=== PATIENT | female | born 1970 | race Caucasian/White ===

== ENCOUNTER → 2024-12-09 | Outpatient (CLI) | payer MEDICARE, SELFPAY ==
--- NOTE | 2024-12-09 10:00 | XR_ITS ---
Examination: Breast ultrasound complete, bilateral Date and time of exam: December 09, 2024 1048 hours Comparison August 16, 2023 INDICATIONS: Diagnosis dense breast architecture Technique: Real-time grayscale ultrasonographic imaging bilateral breasts, including all 4 quadrants as well as nipple retroareolar and axillary regions. Findings: Sonographic images right breast No cystic or solid mass Sonographic images left breast 8:00 cyst 6 x 7 mm No solid nodules IMPRESSION: BI-RADS Category 2: Benign findings
--- NOTE | 2024-12-09 11:00 | XR_ITS ---
Examination: Screening digital mammography, bilateral Computer aided detection 3-D breast Tomosynthesis, bilateral Date and time of exam: December 09, 2024 1111 hours COMPARISON: Mammograms dating to April 13, 2016 Indication: Screening Technique: Nonmagnified MLO, CC views of the breasts to been obtained, reconstructed from 3-D Tomosynthesis images. R2 computer aided detection program utilized for evaluation of suspicious masses and/or abnormal calcifications. 3-D Tomosynthesis images obtained. Findings: The breasts are heterogeneously dense, which may obscure small masses Benign calcifications. No suspicious masses Impression: BI-RADS category II: Benign Findings. Recommend 1 year follow-up mammogram.
== END | disposition home or self-care (01) ==
PROVIDERS: PCP Family Medicine; Referring Provider Family Medicine; Visit Provider Family Medicine
DX: Z12.31 Encounter for screening mammogram for malignant neoplasm of breast (principal); R92.323 Mammographic fibroglandular density, bilateral breasts; R92.1 Mammographic calcification found on diagnostic imaging of breast
CPT/HCPCS: 76641; 77063; 77067

== ENCOUNTER → 2025-05-04 | Outpatient (CLI) | payer MEDICARE, SELFPAY ==
--- NOTE | 2025-05-04 11:00 | XR_ITS ---
EXAMINATION: Ultrasound soft tissue extremity left clavicle TECHNIQUE: Grayscale sonographic images soft tissue left clavicle Date and time: May 04, 2025, 1113 hours INDICATIONS: Soreness in the left clavicle region 6 months. FINDINGS: No cystic or solid mass noted IMPRESSION: No cystic or solid mass noted, recommend plain films clavicle follow-up
== END | disposition home or self-care (01) ==
LOC: CDIM 10:54
PROVIDERS: PCP Nurse Practitioner Family; Referring Provider Nurse Practitioner Family; Visit Provider Nurse Practitioner Family
DX: R22.9 Localized swelling, mass and lump, unspecified (principal)
CPT/HCPCS: 76604